=== PATIENT | male | born 1955 | race Caucasian/White ===

== ENCOUNTER 2018-01-20 16:36 | Emergency (ER) | payer MEDICAID | END 2018-01-20 23:05 | disposition home or self-care (01) | LOC: E/R 16:36 | DX: F10.921 Alcohol use, unspecified with intoxication delirium (principal); R41.82 Altered mental status, unspecified; R10.84 Generalized abdominal pain; F17.210 Nicotine dependence, cigarettes, uncomplicated | CPT/HCPCS: 70450; 82962; 99284-25 ==

== ENCOUNTER 2018-01-21 05:58 | Emergency (ER) | payer MEDICAID ==
[2018-01-21 08:51] LABS: ADD MAN DIFF? NO
[2018-01-21] MEDS: LORAZEPAM 1 MG TAB PO (09:01)
[2018-01-21 09:07] LABS: BASOPHILS % 0.5 % (0.0-2.0); EOSINOPHILS % 0.1 % (0.0-7.0); HEMATOCRIT 38.9 % (42.0-52.0); HEMOGLOBIN 12.2 g/dl (14.0-18.0); LYMPHOCYTES # 1.5 10^3/ul (0.8-2.9); LYMPHOCYTES % 18.7 % (15.0-51.0); MEAN CORPUSCULAR HEMOGLOBIN 23.9 pg (29.0-33.0); MEAN CORPUSCULAR HGB CONC 31.4 g/dl (32.0-37.0); MEAN CORPUSCULAR VOLUME 76.3 fl (82.0-101.0); MEAN PLATELET VOLUME 9.1 fl (7.4-10.4); MONOCYTE # 0.8 10^3/ul (0.3-0.9); MONOCYTES % 9.8 % (0.0-11.0); NEUTROPHIL # 5.5 10^3/ul (1.6-7.5); NEUTROPHILS % 70.6 % (39.0-77.0); PLATELET COUNT 504 10^3/UL (140-415); RED CELL DISTRIBUTION WIDTH 21.8 % (11.5-14.5)
[2018-01-21 09:07] LABS: WHITE BLOOD COUNT 7.8 10^3/ul (4.8-10.8)
[2018-01-21 09:16] LABS: ALANINE AMINOTRANSFERASE 91 IU/L (13-69); ALBUMIN 4.4 g/dl (3.3-4.9); ALBUMIN/GLOBULIN RATIO 1.12; ALKALINE PHOSPHATASE 74 IU/L (42-121); ANION GAP 24 (8-16); ASPARTATE AMINO TRANSFERASE 156 IU/L (15-46); BILIRUBIN,INDIRECT 0.5 mg/dl (0-1.1); BILIRUBIN,TOTAL 0.5 mg/dl (0.2-1.3); BLOOD UREA NITROGEN 11 mg/dl (7-20); CALCIUM 8.6 mg/dl (8.4-10.2); CARBON DIOXIDE 23 mmol/L (21-31); CHLORIDE 96 mmol/L (97-110); CREATININE 0.87 mg/dl (0.61-1.24); GLUCOSE 62 mg/dl (70-220); POTASSIUM 4.1 mmol/L (3.5-5.1); SODIUM 139 mmol/L (135-144); TOTAL PROTEIN 8.3 g/dl (6.1-8.1)
[2018-01-21 09:18] LABS: ACETAMINOPHEN < 10.0 ug/ml (10.0-30.0)
[2018-01-21 09:19] LABS: SALICYLATE < 1.0 mg/dl (5.0-30.0)
[2018-01-21 10:00] LABS: CANNABINOIDS Positive (NEGATIVE)
[2018-01-21] MEDS ORDERED: LIDOCAINE 4% CR (10:00)
[2018-01-21 10:03] LABS: AMPHETAMINE/METHAMPHETAMINE Positive (NEGATIVE); BARBITURATES Negative (NEGATIVE); BENZODIAZEPINES Negative (NEGATIVE); COCAINE Negative (NEGATIVE); OPIATES Negative (NEGATIVE)
[2018-01-21] MEDS: LIDOCAINE 4% CR TOP (10:03)
[2018-01-21] MEDS: HALOPERIDOL 5 MG INJ IM (18:40)
[2018-01-22] MEDS: LORAZEPAM 1 MG TAB PO (10:58)
[2018-01-22] MEDS: LORATADINE 10 MG TAB PO (13:32)
[2018-01-22] MEDS: OLANZAPINE (ODT) 5 MG TAB ODT ×2 (13:32→21:39)
[2018-01-23] MEDS: FAMOTIDINE 20 MG TAB PO (00:22)
[2018-01-23] MEDS: OLANZAPINE (ODT) 5 MG TAB ODT (09:20)
== END 2018-01-23 09:45 ==
LOC: E/R 01-23 09:45
DX: R45.851 Suicidal ideations (principal); F17.210 Nicotine dependence, cigarettes, uncomplicated
CPT/HCPCS: 36415; 80053; 80306; 80307; 85025; 96372; 99284-25

== ENCOUNTER 2018-01-28 19:16 | Emergency (ER) | payer MEDICAID | END 2018-01-28 20:04 | disposition home or self-care (01) | LOC: E/R 19:16 | DX: F32.9 Major depressive disorder, single episode, unspecified (principal); F41.9 Anxiety disorder, unspecified; Z87.891 Personal history of nicotine dependence | CPT/HCPCS: 99283; Z7502 ==

== ENCOUNTER 2018-01-29 14:34 | Emergency (ER) | payer MEDICAID ==
[2018-01-29 16:55] LABS: ADD MAN DIFF? NO
[2018-01-29 16:57] LABS: WHITE BLOOD COUNT 5.9 10^3/ul (4.8-10.8)
[2018-01-29 16:58] LABS: BASOPHIL # 0.1 10^3/ul (0.0-0.1); EOSINOPHILS % 0.7 % (0.0-7.0); HEMATOCRIT 42.3 % (42.0-52.0); HEMOGLOBIN 13.2 g/dl (14.0-18.0); LYMPHOCYTES # 1.7 10^3/ul (0.8-2.9); LYMPHOCYTES % 29.4 % (15.0-51.0); MEAN CORPUSCULAR HGB CONC 31.2 g/dl (32.0-37.0); MEAN CORPUSCULAR VOLUME 76.8 fl (82.0-101.0); MEAN PLATELET VOLUME 9.1 fl (7.4-10.4); MONOCYTE # 0.8 10^3/ul (0.3-0.9); NEUTROPHIL # 3.3 10^3/ul (1.6-7.5); NEUTROPHILS % 55.6 % (39.0-77.0); PLATELET COUNT 464 10^3/UL (140-415); RED BLOOD COUNT 5.51 10^6/ul (4.70-6.10); RED CELL DISTRIBUTION WIDTH 21.3 % (11.5-14.5)
[2018-01-29 17:37] LABS: ALANINE AMINOTRANSFERASE 166 IU/L (13-69); ALBUMIN 4.6 g/dl (3.3-4.9); ALBUMIN/GLOBULIN RATIO 1.17; ALKALINE PHOSPHATASE 86 IU/L (42-121); ASPARTATE AMINO TRANSFERASE 211 IU/L (15-46); BILIRUBIN,INDIRECT 0.8 mg/dl (0-1.1); BILIRUBIN,TOTAL 0.8 mg/dl (0.2-1.3); BLOOD UREA NITROGEN 10 mg/dl (7-20); CALCIUM 8.5 mg/dl (8.4-10.2); CARBON DIOXIDE 25 mmol/L (21-31); CHLORIDE 104 mmol/L (97-110); CREATININE 0.92 mg/dl (0.61-1.24); GLUCOSE 87 mg/dl (70-220); SODIUM 149 mmol/L (135-144); TOTAL PROTEIN 8.5 g/dl (6.1-8.1)
[2018-01-29 17:57] LABS: ACETAMINOPHEN < 10.0 ug/ml (10.0-30.0); SALICYLATE < 1.0 mg/dl (5.0-30.0)
[2018-01-29 17:58] LABS: ANION GAP 24 (8-16)
[2018-01-30] MEDS: LORAZEPAM 1 MG TAB PO ×5 (04:36→21:00)
[2018-01-30] MEDS: DOPamine-D5W 1.6 MG/ML 250 ML IV (04:46)
[2018-01-30] MEDS: OLANZAPINE (ODT) 5 MG TAB ODT (11:57)
[2018-01-30] MEDS: NICOTINE (21 MG/24 HR) PATCH TRANSDERM (18:16)
[2018-01-30 21:06] LABS: AMPHETAMINE/METHAMPHETAMINE Negative (NEGATIVE)
[2018-01-30 21:07] LABS: BARBITURATES Negative (NEGATIVE); BENZODIAZEPINES Negative (NEGATIVE); CANNABINOIDS Negative (NEGATIVE); COCAINE Negative (NEGATIVE); OPIATES Negative (NEGATIVE)
[2018-01-30] MEDS: MIRTAZAPINE 15 MG TAB PO (23:53)
[2018-01-30] MEDS: RISPERIDONE 1 MG TAB PO (23:53)
[2018-01-31 00:50] LABS: ADD UMIC YES; UR ASCORBIC ACID NEGATIVE (NEGATIVE); UR BILIRUBIN (Dip) NEGATIVE (NEGATIVE); UR BLOOD (Dip) 2+ mg/dL (NEGATIVE); UR CLARITY CLEAR (CLEAR); UR COLOR YELLOW (YELLOW); UR GLUCOSE (Dip) NEGATIVE (NEGATIVE); UR KETONES (Dip) NEGATIVE (NEGATIVE); UR LEUKOCYTE ESTERASE (Dip) TRACE Leu/ul (NEGATIVE); UR MUCUS FEW /HPF (NONE SEEN); UR NITRITE (Dip) NEGATIVE (NEGATIVE); UR RBC 31 /HPF (0-5); UR SPECIFIC GRAVITY (Dip) 1.025 (1.003-1.030); UR TOTAL PROTEIN (Dip) NEGATIVE (NEGATIVE); UR UROBILINOGEN (Dip) NEGATIVE (NEGATIVE); UR WBC 6 /HPF (0-5)
== END 2018-01-31 07:40 ==
LOC: E/R 14:34
DX: F33.3 Major depressive disorder, recurrent, severe with psychotic symptoms (principal); D47.3 Essential (hemorrhagic) thrombocythemia; D50.9 Iron deficiency anemia, unspecified; E87.0 Hyperosmolality and hypernatremia; F17.210 Nicotine dependence, cigarettes, uncomplicated; R40.2142 Coma scale, eyes open, spontaneous, at arrival to emergency department; R40.2252 Coma scale, best verbal response, oriented, at arrival to emergency department; R40.2362 Coma scale, best motor response, obeys commands, at arrival to emergency department
CPT/HCPCS: 36415; 80053; 80306; 80307; 81001; 85025; 99285

== ENCOUNTER 2018-07-13 13:42 | Emergency (ER) | payer SELFPAY, MEDICAID | END 2018-07-13 16:15 | disposition left against medical advice (07) | LOC: E/R 13:42 | DX: Z53.21 Procedure and treatment not carried out due to patient leaving prior to being seen by health care provider (principal) | CPT/HCPCS: 93005 ==

== ENCOUNTER 2018-12-31 17:23 | Emergency (ER) | payer OTHER ==
[2018-12-31 17:45] LABS: ADD MAN DIFF? NO
[2018-12-31 17:49] LABS: WHITE BLOOD COUNT 8.3 10^3/ul (4.8-10.8)
[2018-12-31 17:49] LABS: ABNORMAL IP MESSAGE 1; BASOPHILS % 0.2 % (0.0-2.0); EOSINOPHILS % 0.4 % (0.0-7.0); HEMATOCRIT 42.2 % (42.0-52.0); HEMOGLOBIN 13.9 g/dl (14.0-18.0); LYMPHOCYTES # 1.4 10^3/ul (0.8-2.9); LYMPHOCYTES % 16.6 % (15.0-51.0); MEAN CORPUSCULAR HEMOGLOBIN 24.9 pg (29.0-33.0); MEAN CORPUSCULAR HGB CONC 32.9 g/dl (32.0-37.0); MEAN CORPUSCULAR VOLUME 75.5 fl (82.0-101.0); MONOCYTE # 1.2 10^3/ul (0.3-0.9); MONOCYTES % 14.8 % (0.0-11.0); NEUTROPHIL # 5.6 10^3/ul (1.6-7.5); NEUTROPHILS % 67.5 % (39.0-77.0); PLATELET COUNT 314 10^3/UL (140-415); POSITIVE DIFF @See below; RED BLOOD COUNT 5.59 10^6/ul (4.70-6.10); RED CELL DISTRIBUTION WIDTH 22.4 % (11.5-14.5)
[2018-12-31 18:08] LABS: ALANINE AMINOTRANSFERASE 276 IU/L (13-69); ALBUMIN 4.6 g/dl (3.3-4.9); ALBUMIN/GLOBULIN RATIO 1.12; ALKALINE PHOSPHATASE 127 IU/L (42-121); ANION GAP 16 (5-13); ASPARTATE AMINO TRANSFERASE 267 IU/L (15-46); BILIRUBIN,INDIRECT 1.3 mg/dl (0-1.1); BILIRUBIN,TOTAL 1.3 mg/dl (0.2-1.3); BLOOD UREA NITROGEN 11 mg/dl (7-20); CALCIUM 9.1 mg/dl (8.4-10.2); CARBON DIOXIDE 22 mmol/L (21-31); CHLORIDE 97 mmol/L (97-110); CREATININE 0.89 mg/dl (0.61-1.24); Estimated GFR > 60 mL/min (>60); GLUCOSE 124 mg/dl (70-220); POTASSIUM 4.3 mmol/L (3.5-5.1); SODIUM 135 mmol/L (135-144); TOTAL PROTEIN 8.7 g/dl (6.1-8.1)
[2018-12-31 18:25] LABS: ACETAMINOPHEN < 10.0 ug/ml (10.0-30.0); ETHANOL < 10.0 mg/dl (0-0); SALICYLATE < 1.0 mg/dl (5.0-30.0)
[2018-12-31] MEDS: ONDANSETRON 4 MG INJ IV (18:34)
[2018-12-31 18:53] LABS: ADD UMIC YES; UR ASCORBIC ACID NEGATIVE (NEGATIVE); UR BILIRUBIN (Dip) NEGATIVE (NEGATIVE); UR BLOOD (Dip) 1+ mg/dL (NEGATIVE); UR CLARITY CLEAR (CLEAR); UR COLOR YELLOW (YELLOW); UR GLUCOSE (Dip) NEGATIVE (NEGATIVE); UR KETONES (Dip) 2+ mg/dL (NEGATIVE); UR LEUKOCYTE ESTERASE (Dip) NEGATIVE Leu/ul (NEGATIVE); UR NITRITE (Dip) NEGATIVE (NEGATIVE); UR RBC 2 /HPF (0-5); UR SPECIFIC GRAVITY (Dip) 1.016 (1.003-1.030); UR TOTAL PROTEIN (Dip) 1+ mg/dl (NEGATIVE); UR UROBILINOGEN (Dip) 2+ mg/dL (NEGATIVE); UR WBC 1 /HPF (0-5)
[2018-12-31] MEDS: LORAZEPAM 1 MG TAB PO (19:29)
[2018-12-31 19:31] LABS: AMPHETAMINE/METHAMPHETAMINE Negative (NEGATIVE)
[2018-12-31 20:19] LABS: BARBITURATES NEGATIVE (NEGATIVE); BENZODIAZEPINES POSITIVE (NEGATIVE)
[2018-12-31 20:20] LABS: CANNABINOIDS POSITIVE (NEGATIVE); COCAINE NEGATIVE (NEGATIVE); OPIATES NEGATIVE (NEGATIVE)
[2018-12-31] MEDS ORDERED: MULTIVITAMINS THERAPEUTIC TAB PO (22:35)
[2018-12-31] MEDS: FOLIC ACID 1 MG TAB PO (23:40)
[2018-12-31] MEDS: QUETIAPINE 25 MG TAB PO (23:40)
[2018-12-31] MEDS: THIAMINE 100 MG TAB PO (23:40)
[2019-01-01] MEDS ORDERED: CHLORDIAZEPOXIDE 5 MG CAP PO (09:00)
== END 2019-01-01 07:10 ==
LOC: E/R 17:23
DX: F10.239 Alcohol dependence with withdrawal, unspecified (principal); R94.5 Abnormal results of liver function studies; R40.2142 Coma scale, eyes open, spontaneous, at arrival to emergency department; R40.2252 Coma scale, best verbal response, oriented, at arrival to emergency department; R40.2362 Coma scale, best motor response, obeys commands, at arrival to emergency department; Z87.891 Personal history of nicotine dependence
CPT/HCPCS: 80053; 80307; 81001; 85025; 96374; 99285-25